=== PATIENT | female | born 1960 | race Caucasian/White ===

== ENCOUNTER → 2017-03-22 | Outpatient (REF) | payer BC ==
[~2017-03-22] MED LIST: CRES5TAB PO; RISP0.5T3 PO; SYNT100T PO; SYNT112T2 PO; ZOLO100T PO
== END ==
LOC: M SFHCWAGY 16:53
PROVIDERS: ATTEND Nurse Practitioner Women's Health
DX: Z11.3 Encounter for screening for infections with a predominantly sexual mode of transmission (principal)

== ENCOUNTER → 2017-05-09 | Outpatient (REF) | payer BC | LOC: M SFHCWAGY 11:52 | PROVIDERS: ATTEND Nurse Practitioner Women's Health | DX: Z12.4 Encounter for screening for malignant neoplasm of cervix (principal) ==

== ENCOUNTER → 2018-07-31 | Outpatient (CLI) | payer BC | LOC: M LAB 19:29 | PROVIDERS: ATTEND Internal Medicine Pulmonary Disease | DX: J67.9 Hypersensitivity pneumonitis due to unspecified organic dust (principal); Z91.89 Other specified personal risk factors, not elsewhere classified ==

== ENCOUNTER → 2018-10-17 | Outpatient (CLI) | payer BC ==
--- NOTE | 2018-10-17 11:07 | REPMRS ---
Patient History The patient states she had a clinical breast exam in 10/2018. Patient is postmenopausal. No known family history of cancer. Saline implants in both breasts, 2000. Took hormonal contraceptives for 6 months. Taking estrogen for 2 years. 3D TOMOSYNTHESIS WAS PERFORMED. Digital Woman Screen Mammo: October 17, 2018 - Exam #: [id number] Bilateral CC and MLO view(s) were taken. Technologist: Pooja De Luna, Technologist Prior study comparison: May 09, 2017, digital woman screen mammo performed at [facility]. March 28, 2016, digital woman screen mammo performed at [facility]. FINDINGS: There are scattered fibroglandular densities. There has been no change in the appearance of the mammogram from the prior studies. There is a mild amount of residual fibroglandular tissue which is fairly symmetric. There is no interval development of dominant mass, architectural distortion, or clustered microcalcification suggestive of malignancy. Assessment: BI-RADS/ACR category 1 mammogram. Negative Mammogram. Recommendation Routine screening mammogram in 1 year (for women over age 40). This mammogram was interpreted with the aid of an FDA-approved computer-aided dectection system. Electronically Signed By: Burton Lopez MD 10/17/18 [id number]
== END ==
LOC: M WHC 09:31
PROVIDERS: ATTEND Nurse Practitioner Women's Health
DX: Z12.31 Encounter for screening mammogram for malignant neoplasm of breast (principal); Z98.82 Breast implant status

== ENCOUNTER → 2020-02-01 | Outpatient (CLI) | payer BC ==
--- NOTE | 2020-02-01 14:49 | REP ---
SHOULDER: REASON: Pain. COMPARISON: No priors. FINDINGS: Three views of the right shoulder were performed. The acromioclavicular and glenohumeral relationships are within normal limits. There is no acute fracture or destructive osseous lesions. Electronically Signed by Kye Rincon DO 02/01/2020 02:50 P
== END ==
LOC: M WUC 12:32
PROVIDERS: ATTEND Physician Assistant
DX: S40.011A Contusion of right shoulder, initial encounter (principal); X58.XXXA Exposure to other specified factors, initial encounter; Y92.89 Other specified places as the place of occurrence of the external cause

== ENCOUNTER 2020-06-19 17:26 | Emergency (ER) | payer BC ==
[~2020-06-19] VITALS: Ht 152.4 cm; Wt 66.1 kg
[2020-06-19] MEDS ORDERED: LAMI1TAB9 PO (17:41)
[2020-06-19 18:03] LABS: BASO # 0.1 10^3/uL (0.0-0.2); BASO % 0.6 % (0.0-1.0); EOS # 0.1 10^3/uL (0.0-0.5); EOS % 1.8 % (0.0-3.0); HEMATOCRIT 40.3 % (36.0-47.0); HEMOGLOBIN 13.2 g/dl (12.0-15.5); LYMPH # 2.2 10^3/uL (1.5-5.0); LYMPH % 28.4 % (24.0-44.0); MEAN CORPUSCULAR HEMOGLOBIN 30.9 pg (27.0-33.0); MEAN CORPUSCULAR HGB CONC 32.8 g/dl (32.0-36.5); MEAN CORPUSCULAR VOLUME 94.4 fl (80.0-96.0); MONO # 0.7 10^3/uL (0.0-0.8); MONO % 8.4 % (0.0-5.0); NEUTROPHILS # 4.7 10^3/uL (1.5-8.5); NEUTROPHILS % 60.5 % (36.0-66.0); PLATELET COUNT, AUTOMATED 202 10^3/uL (150-450); RED BLOOD COUNT 4.27 10^6/uL (4.00-5.40); WHITE BLOOD COUNT 7.8 10^3/uL (4.0-10.0)
[2020-06-19 18:15] LABS: PARTIAL THROMBOPLASTIN TIME 25.8 SECONDS (24.2-38.5)
[2020-06-19 18:19] LABS: INR 0.92; PROTHROMBIN TIME 12.6 SECONDS (12.5-14.3)
[2020-06-19 18:38] LABS: ALBUMIN 3.8 GM/DL (3.2-5.2); ALT/SGPT 43 U/L (12-78); BILIRUBIN,DIRECT 0.1 MG/DL (0.0-0.2); BILIRUBIN,TOTAL 0.2 MG/DL (0.2-1.0); BLOOD UREA NITROGEN 19 MG/DL (7-18); CALCIUM LEVEL 8.6 MG/DL (8.5-10.1); CARBON DIOXIDE LEVEL 28 MEQ/L (21-32); CHLORIDE LEVEL 103 MEQ/L (98-107); CK-MB VALUE MASS 2.9 NG/ML (<3.6); CPK CREATINE PHOSPHOKINASE 159 U/L (26-192); CREATININE FOR GFR 0.75 MG/DL (0.55-1.30); FREE T4 0.96 NG/DL (0.76-1.46); GLOMERULAR FILTRATION RATE > 60.0 (>51); GLUCOSE, FASTING 94 MG/DL (70-100); LIPASE 187 U/L (73-393); MAGNESIUM LEVEL 2.4 MG/DL (1.8-2.4); MB/CK RELATIVE INDEX 1.82 (< OR =4); POTASSIUM SERUM 4.3 MEQ/L (3.5-5.1); SODIUM LEVEL 137 MEQ/L (136-145); TOTAL PROTEIN 7.3 GM/DL (6.4-8.2); TROPONIN I < 0.02 NG/ML (< 0.10)
--- NOTE | 2020-06-19 19:06 | REPVR ---
PROCEDURE INFORMATION: Exam: XR Chest, 2 Views Exam date and time: 06/19/2020 5:40 PM Age: 59 years old Clinical indication: Chest pain TECHNIQUE: Imaging protocol: XR of the chest Views: 2 views. COMPARISON: No relevant prior studies available. FINDINGS: Lungs: Unremarkable. No consolidation. Pleural space: Unremarkable. No pleural effusion. No pneumothorax. Heart/Mediastinum: Unremarkable. No cardiomegaly. Vasculature: Aorta is slightly tortuous. Bones/joints: There is a suture anchor in the right humeral head. Minimal anterior height loss at multiple levels in the midthoracic spine of indeterminate age. Mild multilevel degenerative disc disease in the thoracic spine. Minimal levoconvex lower thoracic scoliosis. IMPRESSION: 1. No acute cardiopulmonary abnormality. 2. Minimal anterior height loss at multiple levels in the midthoracic spine of indeterminate age. Electronically signed by: Judy Kong On 06/19/2020 19:06:32 PM
[2020-06-19 19:30] VITALS: BP 135/65
--- NOTE | 2020-06-20 06:39 | ECGEPIP ---
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
--- NOTE | 2020-06-21 09:16 | ECGEPIP ---
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
== END 2020-06-19 19:45 | disposition home or self-care (01) ==
LOC: M ED 17:26
DX: I49.1 Atrial premature depolarization (principal); E78.5 Hyperlipidemia, unspecified; E07.9 Disorder of thyroid, unspecified; F33.9 Major depressive disorder, recurrent, unspecified; F41.9 Anxiety disorder, unspecified; Z79.899 Other long term (current) drug therapy; Z79.890 Hormone replacement therapy; Z88.0 Allergy status to penicillin; Z88.8 Allergy status to other drugs, medicaments and biological substances

== ENCOUNTER → 2020-10-27 | Outpatient (CLI) | payer BC ==
[~2020-10-27] MED LIST changes: +LAMI1TAB9 PO
--- NOTE | 2020-10-27 13:13 | REPMRS ---
Patient History The patient states she had a clinical breast exam in October 2020. No known family history of cancer. Saline implants in both breasts, 2000. Took hormonal contraceptives for 6 months. Taking estrogen for 2 years. Digital Woman Screen Mammo: October 27, 2020 - Exam #: [id number] Bilateral CC and MLO view(s) were taken. Technologist: Alka Winkler, Technologist Prior study comparison: October 17, 2018, bilateral digital woman screen mammo performed at [facility]. May 09, 2017, digital woman screen mammo performed at [facility]. January 22, 2014, bilateral bilat screen digital mammo, performed at [facility] FINDINGS: There are scattered fibroglandular densities. The visualized implant margins are smooth. Breast parenchymal density pattern is essentially symmetric. No dominant mass, grouped microcalcification, or architectural distortion is evident on either side. 3-D tomosynthesis shows no additional findings. No significant changes when compared with prior studies. Assessment: BI-RADS/ACR category 2 mammogram. Benign Findings. Recommendation Routine screening mammogram of both breasts in 1 year (for women over age 40). This patient's [facility] Lifetime Breast Cancer RIsk is estimated at 7.9 %. This mammogram was interpreted with the aid of an FDA-approved computer-aided dectection system. Electronically Signed By: Jose Martin Barriga MD 10/27/20 [id number]
== END ==
LOC: M WHC 11:03
PROVIDERS: ATTEND Nurse Practitioner Women's Health
DX: Z12.4 Encounter for screening for malignant neoplasm of cervix (principal); Z12.31 Encounter for screening mammogram for malignant neoplasm of breast; R87.612 Low grade squamous intraepithelial lesion on cytologic smear of cervix (LGSIL)
CPT/HCPCS: 77063; 77067; 87624; G0123

== ENCOUNTER → 2021-03-03 | Outpatient (CLI) | payer BC ==
[2021-03-03 14:36] LABS: HEMATOCRIT 40.5 % (36.0-47.0); HEMOGLOBIN 13.8 g/dl (12.0-15.5); MEAN CORPUSCULAR HEMOGLOBIN 32.6 pg (27.0-33.0); MEAN CORPUSCULAR HGB CONC 34.1 g/dl (32.0-36.5); MEAN CORPUSCULAR VOLUME 95.7 fl (80.0-96.0); PLATELET COUNT, AUTOMATED 224 10^3/uL (150-450); RED BLOOD COUNT 4.23 10^6/uL (4.00-5.40)
[2021-03-03 14:56] LABS: BLOOD UREA NITROGEN 14 MG/DL (7-18); CALCIUM LEVEL 9.2 MG/DL (8.8-10.2); CARBON DIOXIDE LEVEL 31 MEQ/L (21-32); CHLORIDE LEVEL 104 MEQ/L (98-107); CREATININE FOR GFR 0.73 MG/DL (0.55-1.30); GLOMERULAR FILTRATION RATE > 60.0 (>45); GLUCOSE, FASTING 92 MG/DL (70-100); POTASSIUM SERUM 4.4 MEQ/L (3.5-5.1); SODIUM LEVEL 136 MEQ/L (136-145)
--- NOTE | 2021-03-03 22:21 | ECGEPIP ---
[facility] Test Date: 2021-03-03 Pat Name: BUCK GALLEGOS Department: Room: - Gender: Female Correction Officer Head: AROLDO : 1960 Requested By: Randi Corona Order Number: [id number] Reading MD: Evaristo Martínez Measurements Intervals [place] Rate: 52 P: 56 CO: 156 QRS: 43 QRSD: 90 T: 32 QT: 426 QTc: 396 Interpretive Statements Sinus bradycardia Electronically Signed on 03-03-2021 22:20:21 EDT by Evaristo Martínez
== END ==
LOC: M LAB 13:49
PROVIDERS: ATTEND Obstetrics & Gynecology Gynecologic Oncology
DX: Z01.818 Encounter for other preprocedural examination (principal); R00.1 Bradycardia, unspecified

== ENCOUNTER → 2021-08-05 | Outpatient (CLI) | payer BC | LOC: M WUC 15:12 | PROVIDERS: ATTEND Nurse Practitioner Psychiatric/Mental Health | DX: E55.9 Vitamin D deficiency, unspecified (principal) ==

== ENCOUNTER → 2021-12-29 | Outpatient (CLI) | payer BC | LOC: M WUC 13:55 | PROVIDERS: ATTEND Physician Assistant | DX: M77.31 Calcaneal spur, right foot (principal); M79.671 Pain in right foot ==

== ENCOUNTER → 2022-02-17 | Outpatient (REF) | payer BC ==
[2022-02-17 13:01] LABS: BASO % 0.9 % (0.0-1.0); EOS # 0.2 10^3/uL (0.0-0.5); EOS % 3.5 % (0.0-3.0); HEMOGLOBIN 13.6 g/dl (12.0-15.5); LYMPH # 1.4 10^3/uL (1.5-5.0); LYMPH % 29.8 % (24.0-44.0); MEAN CORPUSCULAR HEMOGLOBIN 32.2 pg (27.0-33.0); MEAN CORPUSCULAR VOLUME 94.8 fl (80.0-96.0); MONO # 0.4 10^3/uL (0.0-0.8); MONO % 8.2 % (2.0-8.0); NEUTROPHILS # 2.6 10^3/uL (1.5-8.5); NEUTROPHILS % 57.4 % (36.0-66.0); PLATELET COUNT, AUTOMATED 216 10^3/uL (150-450); RED BLOOD COUNT 4.22 10^6/uL (4.00-5.40); WHITE BLOOD COUNT 4.5 10^3/uL (4.0-10.0)
[2022-02-17 13:22] LABS: APPEARANCE, URINE CLEAR (CLEAR); BACTERIA, URINE AUTO NEGATIVE (NEGATIVE); BILIRUBIN, URINE AUTO NEGATIVE (NEGATIVE); BLOOD, URINE BLOOD NEGATIVE (NEGATIVE); COLOR, URINE YELLOW (YELLOW); GLUCOSE, URINE (UA) AUTO NEGATIVE (NEGATIVE); KETONE, URINE AUTO NEGATIVE (NEGATIVE); LEUKOCYTE ESTERASE, URINE AUTO NEGATIVE (NEGATIVE); NITRITE, URINE AUTO NEGATIVE (NEGATIVE); PROTEIN, URINE AUTO NEGATIVE (NEGATIVE); RBC, URINE AUTO 0 /HPF (0-3); SPECIFIC GRAVITY URINE AUTO 1.004 (1.002-1.035); SQUAMOUS EPITHELIAL CELL UR AU 0 /HPF (0-6); UROBILINOGEN, URINE AUTO 0.2 mg/dL (0.0-2.0); WBC, URINE AUTO 0 /HPF (0-3)
[2022-02-17 13:42] LABS: ALBUMIN 3.8 GM/DL (3.2-5.2); ALT/SGPT 31 U/L (12-78); BILIRUBIN,TOTAL 0.3 MG/DL (0.2-1.0); BLOOD UREA NITROGEN 9 MG/DL (7-18); C REACTIVE PROTEIN QUANTITATIV 0.71 MG/DL (0.00-0.30); CALCIUM LEVEL 9.2 MG/DL (8.8-10.2); CARBON DIOXIDE LEVEL 28 MEQ/L (21-32); CHLORIDE LEVEL 101 MEQ/L (98-107); CREATININE FOR GFR 0.66 MG/DL (0.55-1.30); GLOMERULAR FILTRATION RATE > 60.0 (>45); GLUCOSE, FASTING 80 MG/DL (70-100); POTASSIUM SERUM 4.1 MEQ/L (3.5-5.1); SODIUM LEVEL 134 MEQ/L (136-145); TOTAL PROTEIN 7.4 GM/DL (6.4-8.2)
[2022-02-17 13:46] LABS: ERYTHROCYTE SEDIMENTATION RATE 16 mm/hr (0-30)
[2022-02-17 14:33] LABS: CREATININE,RANDOM URINE 24.1 MG/DL; TOTAL PROTEIN,RANDOM URINE 5.8 MG/DL (0.0-12.0)
[2022-02-21 04:06] LABS: COMPLEMENT C3 120 MG/DL (90-180); COMPLEMENT C4 56 MG/DL (10-40)
== END ==
LOC: M SFHCRHEU 09:07
PROVIDERS: ATTEND Internal Medicine Rheumatology
DX: R76.8 Other specified abnormal immunological findings in serum (principal); L66.1 Lichen planopilaris; M35.3 Polymyalgia rheumatica; M35.00 Sjogren syndrome, unspecified

== ENCOUNTER → 2022-03-07 | Outpatient (CLI) | payer BC | LOC: M RAD 15:29 | PROVIDERS: ATTEND Internal Medicine Rheumatology | DX: R76.8 Other specified abnormal immunological findings in serum (principal); L66.1 Lichen planopilaris; M35.3 Polymyalgia rheumatica ==

== ENCOUNTER → 2022-06-29 | Outpatient (CLI) | payer BC | LOC: M WHC 12:55 | PROVIDERS: ATTEND Nurse Practitioner Family | DX: Z12.31 Encounter for screening mammogram for malignant neoplasm of breast (principal); Z13.820 Encounter for screening for osteoporosis; M85.89 Other specified disorders of bone density and structure, multiple sites ==

== ENCOUNTER → 2022-09-26 | Outpatient (CLI) | payer BC ==
[2022-09-26 17:02] LABS: ALBUMIN 3.8 G/DL (3.2-5.2); ALKALINE PHOSPHATASE 75 U/L (46-116); ALT/SGPT 29 U/L (7.0-40); AST/SGOT 26 U/L (<34); BILIRUBIN,TOTAL 0.5 MG/DL (0.3-1.2); BLOOD UREA NITROGEN 11 MG/DL (9-23); CALCIUM LEVEL 9.1 MG/DL (8.3-10.6); CARBON DIOXIDE LEVEL 28 MMOL/L (20-31); CHLORIDE LEVEL 99 MMOL/L (98-107); CHOLESTEROL LEVEL 199 MG/DL (<200); CHOLESTEROL RISK RATIO 1.91 (<5); CREATININE FOR GFR 0.64 MG/DL (0.55-1.30); GLOMERULAR FILTRATION RATE > 60.0 (>45); GLUCOSE, FASTING 84 MG/DL (74-106); HDL CHOLESTEROL 103.8 MG/DL (>40); NON-HDL-C 95.2 MG/DL; POTASSIUM SERUM 4.4 MMOL/L (3.5-5.1); SODIUM LEVEL 134 MMOL/L (136-145); THYROID STIMULATING HORMONE 3.351 uIU/ML (0.55-4.78); TOTAL PROTEIN 7.2 G/DL (5.7-8.2); TRIGLYCERIDES LEVEL 76 MG/DL (<150)
[2022-09-26 17:09] LABS: BASO # 0.1 10^3/uL (0.0-0.2); BASO % 1.1 % (0.0-1.0); EOS # 0.1 10^3/uL (0.0-0.5); EOS % 1.2 % (0.0-3.0); HEMATOCRIT 39.7 % (36.0-47.0); HEMOGLOBIN 13.4 g/dl (12.0-15.5); LYMPH # 2.4 10^3/uL (1.5-5.0); LYMPH % 36.3 % (24.0-44.0); MEAN CORPUSCULAR HEMOGLOBIN 32.4 pg (27.0-33.0); MEAN CORPUSCULAR HGB CONC 33.8 g/dl (32.0-36.5); MEAN CORPUSCULAR VOLUME 95.9 fl (80.0-96.0); MONO # 0.6 10^3/uL (0.0-0.8); MONO % 9.1 % (2.0-8.0); NEUTROPHILS # 3.5 10^3/uL (1.5-8.5); NEUTROPHILS % 52.1 % (36.0-66.0); PLATELET COUNT, AUTOMATED 279 10^3/uL (150-450); RED BLOOD COUNT 4.14 10^6/uL (4.00-5.40); WHITE BLOOD COUNT 6.6 10^3/uL (4.0-10.0)
== END ==
LOC: M WUC 14:47
PROVIDERS: ATTEND Physician Assistant
DX: Z01.818 Encounter for other preprocedural examination (principal); E78.5 Hyperlipidemia, unspecified

== ENCOUNTER → 2023-04-02 | Outpatient (CLI) | payer BC ==
[2023-04-02 13:30] LABS: HEMATOCRIT 40.4 % (36.0-47.0); HEMOGLOBIN 13.4 g/dl (12.0-15.5); MEAN CORPUSCULAR HEMOGLOBIN 32.3 pg (27.0-33.0); MEAN CORPUSCULAR HGB CONC 33.2 g/dl (32.0-36.5); MEAN CORPUSCULAR VOLUME 97.3 fl (80.0-96.0); PLATELET COUNT, AUTOMATED 262 10^3/uL (150-450); RED BLOOD COUNT 4.15 10^6/uL (4.00-5.40); WHITE BLOOD COUNT 4.3 10^3/uL (4.0-10.0)
[2023-04-02 14:05] LABS: ALBUMIN 3.8 G/DL (3.2-5.2); ALKALINE PHOSPHATASE 63 U/L (46-116); ALT/SGPT 27 U/L (7.0-40); AST/SGOT 17 U/L (<34); BILIRUBIN,TOTAL 0.5 MG/DL (0.3-1.2); BLOOD UREA NITROGEN 11 MG/DL (9-23); CARBON DIOXIDE LEVEL 30 MMOL/L (20-31); CHLORIDE LEVEL 100 MMOL/L (98-107); CHOLESTEROL LEVEL 210 MG/DL (<200); CHOLESTEROL RISK RATIO 1.95 (<5); CREATININE FOR GFR 0.66 MG/DL (0.55-1.30); GLOMERULAR FILTRATION RATE > 60.0 (>45); GLUCOSE, FASTING 85 MG/DL (74-106); HDL CHOLESTEROL 107.3 MG/DL (>40); LDL CHOLESTEROL 93.9 MG/DL (<100); NON-HDL-C 102.7 MG/DL; POTASSIUM SERUM 4.6 MMOL/L (3.5-5.1); SODIUM LEVEL 137 MMOL/L (136-145); THYROID STIMULATING HORMONE 2.318 uIU/ML (0.55-4.78); TOTAL PROTEIN 6.9 G/DL (5.7-8.2); TRIGLYCERIDES LEVEL 44 MG/DL (<150)
== END ==
LOC: M WUC 09:55
PROVIDERS: ATTEND Physician Assistant
DX: E78.5 Hyperlipidemia, unspecified (principal); E03.9 Hypothyroidism, unspecified

== ENCOUNTER → 2023-07-02 | Outpatient (CLI) | payer BC ==
[~2023-07-02] MED LIST changes: +ATOR1TAB19 PO; +CALTCHW5 PO; +CELE1CAP4 PO; +VIIB20TA PO; +VITA-243 PO; +VITA100093 PO; +VITMTA PO
== END ==
LOC: M WHC 14:28
PROVIDERS: ATTEND Nurse Practitioner Family
DX: Z12.31 Encounter for screening mammogram for malignant neoplasm of breast (principal)

== ENCOUNTER 2023-07-04 12:41 | Day surgery (SDC) | payer BC ==
[~2023-07-04] VITALS: Ht 152.4 cm; Wt 61.7 kg
[~2023-07-04 12:41] MED LIST changes: +NS 1,000 ML IV ONE
[2023-07-04] MEDS ORDERED: propofoL 200 MG/20 ML VIAL As Ordered ONE (13:18)
[2023-07-04] MEDS ORDERED: IPRATROPIUM 0.5MG/ALBUTEROL 2.5MG INH SOL UD 3ML (DUONEB) NEB ONE (13:30)
[2023-07-04 14:16] VITALS: BP 108/59; TEMP 96.4; O2SAT 97
[2023-07-04] MEDS ORDERED: LEVALBUTEROL 1.25MG 0.5ML CONCENTRATE NEB NEB ONE (17:00)
== END 2023-07-04 14:05 | disposition home or self-care (01) ==
LOC: M OPP 12:41
PROVIDERS: ATTEND Surgery
DX: Z12.11 Encounter for screening for malignant neoplasm of colon (principal); K64.0 First degree hemorrhoids; Z79.02 Long term (current) use of antithrombotics/antiplatelets; Z79.1 Long term (current) use of non-steroidal anti-inflammatories (NSAID); Z79.890 Hormone replacement therapy; Z79.899 Other long term (current) drug therapy; Z88.0 Allergy status to penicillin; Z88.6 Allergy status to analgesic agent

== ENCOUNTER → 2023-10-23 | Outpatient (CLI) | payer BC ==
[~2023-10-23] MED LIST changes: -NS 1,000 ML IV ONE
== END ==
LOC: M WUC 12:03
PROVIDERS: ATTEND Physician Assistant
DX: S22.42XA Multiple fractures of ribs, left side, initial encounter for closed fracture (principal); W10.8XXA Fall (on) (from) other stairs and steps, initial encounter; J90 Pleural effusion, not elsewhere classified

== ENCOUNTER → 2023-12-13 | Outpatient (REF) | payer BC ==
[2023-12-13 12:12] LABS: HEMATOCRIT 41.1 % (36.0-47.0); HEMOGLOBIN 14.2 g/dl (12.0-15.5); MEAN CORPUSCULAR HEMOGLOBIN 32.9 pg (27.0-33.0); MEAN CORPUSCULAR HGB CONC 34.5 g/dl (32.0-36.5); MEAN CORPUSCULAR VOLUME 95.1 fl (80.0-96.0); PLATELET COUNT, AUTOMATED 285 10^3/uL (150-450); RED BLOOD COUNT 4.32 10^6/uL (4.00-5.40); WHITE BLOOD COUNT 4.4 10^3/uL (4.0-10.0)
[2023-12-13 12:44] LABS: ALBUMIN 3.7 G/DL (3.2-5.2); ALKALINE PHOSPHATASE 73 U/L (46-116); ALT/SGPT 23 U/L (7.0-40); AST/SGOT 14 U/L (<34); BILIRUBIN,TOTAL 0.5 MG/DL (0.3-1.2); BLOOD UREA NITROGEN 8 MG/DL (9-23); CALCIUM LEVEL 9.6 MG/DL (8.3-10.6); CARBON DIOXIDE LEVEL 26 MMOL/L (20-31); CHLORIDE LEVEL 102 MMOL/L (98-107); CHOLESTEROL LEVEL 264 MG/DL (<200); CHOLESTEROL RISK RATIO 2.65 (<5); CREATININE FOR GFR 0.65 MG/DL (0.55-1.30); GLOMERULAR FILTRATION RATE > 60.0 (>45); GLUCOSE, FASTING 80 MG/DL (74-106); HDL CHOLESTEROL 99.3 MG/DL (>40); LDL CHOLESTEROL 149.1 MG/DL (<100); NON-HDL-C 164.7 MG/DL; POTASSIUM SERUM 4.9 MMOL/L (3.5-5.1); SODIUM LEVEL 134 MMOL/L (136-145); TOTAL PROTEIN 7.1 G/DL (5.7-8.2); TRIGLYCERIDES LEVEL 78 MG/DL (<150)
== END ==
LOC: M LABWUC 10:24
PROVIDERS: ATTEND Physician Assistant
DX: E78.5 Hyperlipidemia, unspecified (principal); E03.9 Hypothyroidism, unspecified

== ENCOUNTER → 2024-07-11 | Outpatient (CLI) | payer BC | LOC: M WHC 10:34 | PROVIDERS: ATTEND Nurse Practitioner Family | DX: Z12.31 Encounter for screening mammogram for malignant neoplasm of breast (principal) ==

== ENCOUNTER → 2024-11-18 | Outpatient (CLI) | payer BC ==
[2024-11-18 13:36] LABS: HEMATOCRIT 40.2 % (36.0-47.0); HEMOGLOBIN 13.5 g/dl (12.0-15.5); MEAN CORPUSCULAR HEMOGLOBIN 32.2 pg (27.0-33.0); MEAN CORPUSCULAR HGB CONC 33.6 g/dl (32.0-36.5); MEAN CORPUSCULAR VOLUME 95.9 fl (80.0-96.0); PLATELET COUNT, AUTOMATED 274 10^3/uL (150-450); RED BLOOD COUNT 4.19 10^6/uL (4.00-5.40)
[2024-11-18 14:08] LABS: ALBUMIN 3.9 G/DL (3.2-5.2); ALKALINE PHOSPHATASE 73 U/L (35-104); ALT/SGPT 29 U/L (7.0-40); AST/SGOT 23 U/L (<34); BILIRUBIN,TOTAL 0.7 MG/DL (0.3-1.2); BLOOD UREA NITROGEN 10 MG/DL (9-23); CALCIUM LEVEL 9.1 MG/DL (8.3-10.6); CARBON DIOXIDE LEVEL 27 MMOL/L (20-31); CHLORIDE LEVEL 100 MMOL/L (98-107); CHOLESTEROL LEVEL 236 MG/DL (<200); CHOLESTEROL RISK RATIO 2.13 (<5); CREATININE FOR GFR 0.65 MG/DL (0.55-1.30); GLOMERULAR FILTRATION RATE > 90.0 (>45); GLUCOSE, FASTING 84 MG/DL (74-106); HDL CHOLESTEROL 110.6 MG/DL (>40); LDL CHOLESTEROL 112.4 MG/DL (<100); NON-HDL-C 125.4 MG/DL; POTASSIUM SERUM 4.5 MMOL/L (3.5-5.1); SODIUM LEVEL 136 MMOL/L (136-145); TOTAL PROTEIN 7.2 G/DL (5.7-8.2); TRIGLYCERIDES LEVEL 65 MG/DL (<150)
[2024-11-18 14:10] LABS: THYROID STIMULATING HORMONE 2.425 uIU/ML (0.55-4.78)
[2024-11-19 07:09] LABS: WHITE BLOOD COUNT 4.2 10^3/uL (4.0-10.0)
== END ==
LOC: M WUC 09:11
PROVIDERS: ATTEND Physician Assistant
DX: E03.9 Hypothyroidism, unspecified (principal); E78.5 Hyperlipidemia, unspecified; M79.672 Pain in left foot; M19.072 Primary osteoarthritis, left ankle and foot

== ENCOUNTER → 2025-02-18 | Outpatient (CLI) | payer BC | LOC: M WUC 13:25 | PROVIDERS: ATTEND Physician Assistant | DX: M25.531 Pain in right wrist (principal) ==

== ENCOUNTER → 2025-06-22 | Outpatient (CLI) | payer BC ==
[2025-06-23 13:42] LABS: ALT/SGPT 30 U/L (7.0-40); AST/SGOT 27 U/L (<34); CALCIUM LEVEL 9.0 MG/DL (8.3-10.6); CARBON DIOXIDE LEVEL 25 MMOL/L (20-31); CHLORIDE LEVEL 98 MMOL/L (98-107); CHOLESTEROL LEVEL 222 MG/DL (<200); CHOLESTEROL RISK RATIO 2.16 (<5); CREATININE FOR GFR 0.66 MG/DL (0.55-1.30); GLOMERULAR FILTRATION RATE > 90.0 (>45); LDL CHOLESTEROL 100.3 MG/DL (<100); NON-HDL-C 119.5 MG/DL; PLATELET COUNT, AUTOMATED 246 10^3/uL (150-450); POTASSIUM SERUM 4.2 MMOL/L (3.5-5.1); SODIUM LEVEL 132 MMOL/L (136-145); TRIGLYCERIDES LEVEL 96 MG/DL (<150)
[2025-06-23 14:22] LABS: APPEARANCE, URINE CLOUDY (CLEAR); BACTERIA, URINE AUTO 1+ (NEGATIVE); BILIRUBIN, URINE AUTO NEGATIVE (NEGATIVE); BLOOD, URINE BLOOD NEGATIVE (NEGATIVE); CALCIUM OXALATE CRYSTALS SMALL; GLUCOSE, URINE (UA) AUTO NEGATIVE (NEGATIVE); KETONE, URINE AUTO NEGATIVE (NEGATIVE); LEUKOCYTE ESTERASE, URINE AUTO 3+ (NEGATIVE); NITRITE, URINE AUTO NEGATIVE (NEGATIVE); PROTEIN, URINE AUTO NEGATIVE (NEGATIVE); RBC, URINE AUTO 0 /HPF (0-3); SPECIFIC GRAVITY URINE AUTO 1.013 (1.002-1.035); SQUAMOUS EPITHELIAL CELL UR AU 11 /HPF (0-6); UROBILINOGEN, URINE AUTO 0.2 mg/dL (0.0-2.0); WBC, URINE AUTO TNTC /HPF (0-3)
== END ==
LOC: M WUC 13:06
PROVIDERS: ATTEND Physician Assistant
DX: R19.7 Diarrhea, unspecified (principal); E78.5 Hyperlipidemia, unspecified; E03.9 Hypothyroidism, unspecified; R35.1 Nocturia

== ENCOUNTER → 2025-07-07 | Outpatient (CLI) | payer BC | LOC: M WUC 11:53 | PROVIDERS: ATTEND Physician Assistant | DX: R06.02 Shortness of breath (principal); R05.3 Chronic cough ==

== ENCOUNTER → 2025-07-13 | Outpatient (CLI) | payer BC | LOC: M WHC 13:47 | PROVIDERS: ATTEND Nurse Practitioner Family | DX: Z12.31 Encounter for screening mammogram for malignant neoplasm of breast (principal); R92.323 Mammographic fibroglandular density, bilateral breasts ==